=== PATIENT | male | born 1985 | race African-American/Black ===

== ENCOUNTER 2018-10-29 13:05 | Outpatient (CLI) | payer OTHER ==
--- NOTE | 2018-10-29 15:11 | MRI ---
MRI RIGHT ELBOW WITHOUT IV CONTRAST: HISTORY: Old injury, right elbow. Elbow pain since 09/22/2018, following an injury. TECHNIQUE: Multiplanar, multisequence MRI examination of the elbow is performed. FINDINGS: There is some deformity of the radial head, without significant abnormal marrow edema, evidence for a healed fracture. Ulnar collateral ligament is intact. The lateral collateral ligament region appea rs to be somewhat thickened, but no evidence for an acute tear. Common flexor and common extensor in sertion regions are unremarkable. Biceps tendon and triceps tendon insertion regions are unremarkabl e. Minimal increased joint fluid of the elbow joint. Minimal degenerative osteophytosis changes. IMPRESSION: 1. Minimal deformity of the radial head with some secondary degenerative hypertrophic osteophytosis. 2. Small joint effusion. 3. Minimal thickening of the lateral collateral ligament, but without evidence for an acute tear. 4. No significant acute fracture. POS: [facility]
== END 2018-10-29 13:06 | disposition home or self-care (01) ==
LOC: SCSMRI 13:05
PROVIDERS: ATTEND Family Medicine
DX: S59.901D Unspecified injury of right elbow, subsequent encounter (principal); M21.931 Unspecified acquired deformity of right forearm; M25.421 Effusion, right elbow; M24.221 Disorder of ligament, right elbow; M25.721 Osteophyte, right elbow